=== PATIENT | female | born 1995 | race African-American/Black ===

== ENCOUNTER 2018-03-02 12:27 | Day surgery (SDC) | payer OTHER ==
[~2018-03-02 12:27] MED LIST: ACETAMINOPHEN 1,000 MG/100 ML BTL IV ONE; CEFAZOLIN 2 Gram 2 GM/50 ML BAG IVPB ONE
[2018-03-02] MEDS ORDERED: BUPIVACAINE 0.5% W/EPI MPF 30 ML VIAL IVP ONE (12:28)
[2018-03-02] MEDS ORDERED: *PACU ONLY* KETAMINE HCL 10 MG/ML (20ML) VIAL IV ONE (12:28)
[2018-03-02] MEDS ORDERED: FENTANYL PF 100MCG/2ML VIAL IV ONE (12:28)
[2018-03-02] MEDS ORDERED: LIDOCAINE 2% MDV (20MG/ML) 20ML VIAL IV ONE ×2 (12:28)
[2018-03-02] MEDS ORDERED: KETOROLAC 30 MG/ML VIAL IVP ONE (12:28)
[2018-03-02] MEDS ORDERED: PROPOFOL 10 MG/ML VIAL IV ONE (12:28)
--- NOTE | 2018-03-05 22:08 | Operative Note ---
DATE: 03/02/2018 PREOPERATIVE DIAGNOSIS: HEALED TIBIAL TUBERCLE OSTEOTOMY ON THE RIGHT WITH PAINFUL ORTHOPEDIC HARDWARE. POSTOPERATIVE DIAGNOSIS: HEALED TIBIAL TUBERCLE OSTEOTOMY ON THE RIGHT WITH PAINFUL ORTHOPEDIC HARDWARE. PROCEDURE: REMOVAL OF DEEP BURIED HARDWARE RIGHT TIBIAL TUBERCLE. STAFF SURGEON: KATIE MURDOCK M.D. ANESTHESIA: LOCAL WITH IV SEDATION. PREPARATION: CHLORAPREP. INDIVIDUAL CONSIDERATIONS: NONE. PROCEDURE: The patient was taken to the Operating Room and placed supine on the operating table. She had a successful induction of a general anesthetic. Her right lower extremity was prepped and draped in the usual fashion. The patient had palpable screws. About a 2 cm incision was made directly over the screws of the tibial tubercle. The skin was infiltrated with a 50/50 mixture of 0.5% Marcaine with Epinephrine and 1% Lidocaine with Epinephrine. Sharp dissection carried down through the skin. Sharp dissection carried directly over the screw heads. Using an osteotome, a slight mallet, and a periosteal elevator, I was able to remove the soft tissue and actually bony in- growth over the top of the screws and washers. Both screws and washers were then removed. After irrigation, I closed the subcu with a few interrupted 2-0 Plus Vicryl. The skin was closed with felicia and a small sterile dressing was applied. She was taken back to Recovery in good condition. There were no complications. JOB NUMBER: [id number] [facility]
== END 2018-03-02 16:45 | disposition home or self-care (01) ==
LOC: SUR 12:27
PROVIDERS: ATTEND Orthopaedic Surgery
DX: M25.561 Pain in right knee (principal); T84.84XA Pain due to internal orthopedic prosthetic devices, implants and grafts, initial encounter; J45.909 Unspecified asthma, uncomplicated
CPT/HCPCS: 20680; 01392; 81025; J1885; J3010; J0690